=== PATIENT | female | born 1995 | race Asian ===

== ENCOUNTER 2019-07-20 01:46 | Emergency (ER) | payer BC ==
--- NOTE | 2019-07-20 01:55 | NUR ---
Patient states "I feel better now. I don't want [email or web address] be seen anymore." Patient left ER waiting room with friend. Patient was not triaged or seen by ERMD.
== END 2019-07-20 02:08 | disposition left against medical advice (07) ==
LOC: ER 02:04
DX: Z53.21 Procedure and treatment not carried out due to patient leaving prior to being seen by health care provider (principal)